=== PATIENT | male | born 1990 | race Caucasian/White ===

== ENCOUNTER → 2016-07-04 | Outpatient (CLI) | payer OTHER ==
--- NOTE | 2016-07-04 13:38 | MR ---
MRI of the Lumbar Spine (Without Contrast) July 04, 2016 Indication: Low back pain. Technique: Sagittal and axial T1 and T2 , and sagittal STIR MR sequences of the lumbar spine without contrast. Axial imaging from T12 through S1. Comparison: MRI lumbar spine dated December 03, 2015. Findings: Loss of normal lordosis and congenitally narrowed spinal canal are similar to 8 months prio r. No compression fracture, bone marrow replacing lesion, or pars defect has developed. The numerous Schmorl's nodes at the T12-L1, L1-L2, and L2-L3 levels are unchanged. The conus medullaris resides at the L1 level. T12-L1: Widely patent central canal and neural foramina. Normal disk. L1-L2: Mild central canal and minimal neural foraminal stenosis is unchanged. Mild facet hypertrophy and minimal posterior disk bulge are unchanged. L2-L3: Severe central canal narrowing due to a subligamentous central disk herniation (protrusion) cam perimposed on a congenitally narrowed canal and facet hypertrophy is unchanged. The thecal sac measur es 5 mm AP. The nerve rootlets are compressed with no significant cerebral spinal fluid around them a t this level. Minimal bilateral neural foraminal stenosis is unchanged. L3-L4: Mild to moderate central canal narrowing due to congenitally narrowed canal and facet hypertro phy is unchanged. Minimal bilateral neural foraminal narrowing is unchanged. L4-L5: Mild central canal and mild neural foraminal stenosis due to minimal posterior disk bulge and facet hypertrophy is unchanged. L5-S1: Mild central canal narrowing due to diffuse broad-based disk bulge and facet hypertrophy is un changed. Impression: 1. Severe central disk stenosis at the L2-L3 level due to a central subligamentous disk herniation (p rotrusion) superimposed on a congenitally narrowed canal is unchanged. 2. No new disk herniation or significant central canal narrowing has developed at any new level. 3. Widely patent neural foramina.
== END ==
LOC: FIMAGING 10:32
PROVIDERS: ATTEND Physician Assistant
DX: M51.26 Other intervertebral disc displacement, lumbar region (principal)

== ENCOUNTER → 2016-08-05 | Outpatient (CLI) | payer OTHER ==
--- NOTE | 2016-08-05 10:44 | MR ---
MRI Pelvis, Without Contrast History: Back pain. Evaluate for sacroiliitis. ICD-10 code: M46.1. Technique: MRI is performed of the pelvis using a 1.5 [employer] MRI system. Sagittal, coronal, and axial imaging was obtained with standard imaging sequences. [id number] was optimized to evaluate the sac rum and sacroiliac joints. Findings: No significant bone marrow edema or evidence for erosion to indicate sacroiliitis. No evide nce for stress fracture of the sacrum. Sacral foramina are widely patent. Visualized musculature is u nremarkable. Impression: No evidence for sacroiliitis.
== END ==
LOC: FIMAGING 07:00
PROVIDERS: ATTEND Physical Medicine & Rehabilitation
DX: M54.9 Dorsalgia, unspecified (principal)

== ENCOUNTER 2016-09-01 07:04 | Day surgery (SDC) | payer OTHER ==
[2016-09-01] MEDS ORDERED: FLUMAZENIL 0.5 MG/5 ML MDV IVP ONE (08:45)
[2016-09-01] MEDS ORDERED: NALOXONE HCL 0.4 MG/ML INJ ONE (08:45)
[2016-09-01] MEDS ORDERED: MIDAZOLAM 2 MG/2 ML VIAL ONE (08:45)
[2016-09-01] MEDS ORDERED: NS 1,000 ML IV SCH (08:45)
[2016-09-01] MEDS ORDERED: ONDANSETRON 4 MG/2 ML VIAL ONE (08:46)
[2016-09-01] MEDS ORDERED: fentaNYL 100 MCG/2 ML INJ ONE (08:46)
[2016-09-01] MEDS ORDERED: DEPO METHYLPREDNISOLONE 80 MG/ML SDV ONE (09:47)
[2016-09-01] MEDS ORDERED: BUPIVACAINE 0.5% 30 ML SDV ONE (09:47)
[2016-09-01] MEDS ORDERED: IOPAMIDOL (ISOVUE-M 300) 15 ML VIAL IV ONE (09:47)
== END 2016-09-01 10:40 | disposition home or self-care (01) ==
LOC: FIMAGING 07:04
PROVIDERS: ATTEND Physical Medicine & Rehabilitation
PROC: 3E0U3BZ Introduction of Anesthetic Agent into Joints, Percutaneous Approach (ICD-10-PCS; principal; 2016-09-01)
PROC: 3E0U33Z Introduction of Anti-inflammatory into Joints, Percutaneous Approach (ICD-10-PCS; principal; 2016-09-01)
DX: M51.16 Intervertebral disc disorders with radiculopathy, lumbar region (principal)
CPT/HCPCS: J1020; J2250; J2310; J2405; J3010; Q9967

== ENCOUNTER 2016-12-09 12:05 | Day surgery (SDC) | payer OTHER ==
[2016-12-01 10:21] LABS: % IMMATURE GRANULYOCYTES 0.5 % (0.0-1.1); ABSOLUTE IMMATURE GRANULOCYTES 0.02 10^3/uL (0.00-0.10); ADD DIFF? NO; ADD MORPH? NO; ADD SCAN? NO; ATYPICAL LYMPHOCYTE FLAG 20 (0-99); FRAGMENT RBC FLAG 0 (0-99); HEMATOCRIT 52.8 % (40.0-51.0); HEMOGLOBIN 18.3 g/dL (13.7-17.5); LEFT SHIFT FLG 0 (0-99); LIPEMIA HEMOLYSIS FLAG 90 (0-99); MEAN CELL HEMOGLOBIN 28.5 pg (27.9-34.1); MEAN CELL HEMOGLOBIN CONCENTR. 34.7 g/dL (32.4-36.7); MEAN CELL VOLUME 82.1 fL (81.5-99.8); MEAN PLATELET VOLUME 10.5 fL (8.7-11.7); PLATELET CLUMPS FLAG 0 (0-99); PLATELET COUNT 208 10^3/uL (150-400); RED BLOOD CELL COUNT 6.43 10^6/uL (4.40-6.38); RED CELL DISTRIBUTION WIDTH 12.1 % (11.5-15.2)
--- NOTE | 2016-12-09 07:02 | PDHPUP ---
History & Physical Update H&P update statement: This history and physical update is based on an assessment of the patient which was completed after admission or registration (within 24 hours), but prior to the surgery/procedure. H&P update: H&P reviewed & patient examined, no change in patient's condition since H&P completed
[~2016-12-09 12:05] MED LIST: BACITRACIN 50,000 UNITS/10 ML SYR IRR ONE; BUPIVACAINE/EPI 0.25% 30 ML SDV ONE; CHLORHEXIDINE GLUC HIBICLENS 118 ML BTL TP ONE; DEPO METHYLPREDNISOLONE 40 MG/ML SDV ONE; THROMBIN (BOVINE) 5,000 UNIT VIAL TP ONE; ceFAZolin 2 GM/DEXTROSE 100 ML IV ONE
[2016-12-09] MEDS ORDERED: LR 1,000 ML IV ONE (12:32)
[2016-12-09] MEDS ORDERED: CEFAZOLIN 2 GM/DEXTROSE/100 ML BAG IV ONE (12:57)
[2016-12-09] MEDS ORDERED: CHLORHEXIDINE GLUC HIBICLENS 118 ML BTL TP ONE (12:57)
[2016-12-09 13:07] LABS: % IMMATURE GRANULYOCYTES 0.2 % (0.0-1.1); ABSOLUTE IMMATURE GRANULOCYTES 0.01 10^3/uL (0.00-0.10); ADD DIFF? NO; ADD MORPH? NO; ADD SCAN? NO; ATYPICAL LYMPHOCYTE FLAG 10 (0-99); FRAGMENT RBC FLAG 0 (0-99); HEMOGLOBIN 18.6 g/dL (13.7-17.5); LEFT SHIFT FLG 0 (0-99); LIPEMIA HEMOLYSIS FLAG 90 (0-99); MEAN CELL HEMOGLOBIN 28.7 pg (27.9-34.1); MEAN CELL HEMOGLOBIN CONCENTR. 35.8 g/dL (32.4-36.7); MEAN CELL VOLUME 80.2 fL (81.5-99.8); MEAN PLATELET VOLUME 10.3 fL (8.7-11.7); PLATELET CLUMPS FLAG 0 (0-99); PLATELET COUNT 203 10^3/uL (150-400); RED BLOOD CELL COUNT 6.48 10^6/uL (4.40-6.38); RED CELL DISTRIBUTION WIDTH 12.4 % (11.5-15.2)
--- NOTE | 2016-12-09 14:27 | PDANEPAE ---
ANE History of Present Illness 26 yo M w spinal stenosis here for L2-3 TLIF ANE Past Medical History - Cardiovascular History Hx Hypertension: No Hx Arrhythmias: No Hx Chest Pain: No Hx Coronary Artery / Peripheral Vascular Disease: No Hx CHF / Valvular Disease: No Hx Palpitations: No - Pulmonary History Hx COPD: No Hx Asthma/Reactive Airway Disease: No Hx Recent Upper Respiratory Infection: No Hx Oxygen in Use at Home: No - Neurologic History Hx Cerebrovascular Accident: No Hx Seizures: No Hx Dementia: No - Endocrine History Hx Diabetes: No - Renal History Hx Renal Disorders: No - Liver History Hx Hepatic Disorders: No - Neurological & Psychiatric Hx Hx Neurological and Psychiatric Disorders: Yes - Cancer History Hx Cancer: No - Congenital Disorder History Hx Congenital Disorders: Yes - GI History Hx Gastrointestinal Disorders: Yes - Chronic Pain History Chronic Pain: Yes (LOWER BACK RADIATING TO BILATERAL LEGS) ANE Review of Systems - Exercise capacity Exercise capacity: >=4 METS METS (RN): 4 METS ANE Patient History - Allergies Allergies/Adverse Reactions: No Known Allergies Allergy (Unverified 12/03/15 15:23) - Home Medications Home medications: home medication list seen and reviewed Home Medications: Vitamin D3 5,000 iunits PO DAILY 08/31/16 [Last Taken 11/24/16] Cyclobenzaprine 2 tab DAILY 11/30/16 [Last Taken 11/26/16] Lyrica 75mg (*) 1 tab BID 11/30/16 [Last Taken 12/08/16] Meloxicam 1 tab DAILY 11/30/16 [Last Taken 11/26/16] Prilosec 20 mg 1 tab DAILY 11/30/16 [Last Taken 12/02/16] - NPO status NPO Since - Liquids (Date): 12/09/16 NPO Since - Liquids (Time): 07:30 NPO Since - Solids (Date): 12/08/16 NPO Since - Solids (Time): 23:55 - Anes Hx Anes Hx: no prior problems - Smoking Hx Smoking Status: Never smoked - Alcohol Use Alcohol Use: None - Family Anes Hx Family Anes Hx: none ANE Labs/Vital Signs - Labs Result Diagrams: 12/09/16 12:53 - Vital Signs Blood Pressure: 140/91 Heart Rate: 96 Respiratory Rate: 16 Height: 175.26 cm Weight: 61.235 kg ANE Physical Exam - Airway Neck exam: FROM Mallampati Score: Class 2 Mouth exam: normal dental/mouth exam - Pulmonary Pulmonary: no respiratory distress, clear to auscultation - Cardiovascular Cardiovascular: regular rate and rhythym, no murmur, rub, or gallop - ASA Status ASA Status: I ANE Anesthesia Plan Anesthesia Plan: general endotracheal anesthesia
[2016-12-09] MEDS ORDERED: PROPOFOL 200 MG/20 ML VIAL ONE (14:31)
[2016-12-09] MEDS ORDERED: PROPOFOL/EMULSION 500 MG/50 ML BOTTLE IV ONE (14:31)
[2016-12-09] MEDS ORDERED: REMIFENTANIL HCL 1 MG VIAL ONE (14:31)
[2016-12-09] MEDS ORDERED: fentaNYL 100 MCG/2 ML INJ ONE ×2 (14:31→17:06)
[2016-12-09] MEDS ORDERED: ROCURONIUM 50 MG/5 ML VIAL ONE (14:33)
[2016-12-09] MEDS ORDERED: LIDOCAINE 2% 100 MG/5 ML SYR ONE (14:33)
[2016-12-09] MEDS ORDERED: MIDAZOLAM 2 MG/2 ML VIAL IVP ONE (14:46)
[2016-12-09] MEDS ORDERED: DEXAMETHASONE 4 MG/ML VIAL ONE (16:02)
[2016-12-09] MEDS ORDERED: ONDANSETRON 4 MG/2 ML VIAL ONE (16:02)
[2016-12-09] MEDS ORDERED: PHENYLEPHRINE HCL 100 MCG/ML SYR ONE ×2 (16:17)
[2016-12-09] MEDS ORDERED: OXYCODONE/APAP 5/325 TAB PO PRN (16:43)
[2016-12-09] MEDS ORDERED: ONDANSETRON 4 MG/2 ML VIAL IVP PRN (16:43)
[2016-12-09] MEDS ORDERED: fentaNYL 100 MCG/2 ML INJ IVP PRN (16:43)
[2016-12-09] MEDS ORDERED: PROMETHAZINE HCL 25 MG/ML INJ IVP PRN (16:43)
[2016-12-09] MEDS ORDERED: NALOXONE HCL 0.4 MG/ML INJ IVP PRN (16:43)
[2016-12-09] MEDS ORDERED: HYDROmorphONE/DILAUDID 1 MG/ML SYR IVP PRN (16:43)
[2016-12-09] MEDS ORDERED: ACETAMINOPHEN 500 MG TAB PO PRN (16:43)
[2016-12-09] MEDS ORDERED: SUGAMMADEX SODIUM 200 MG/2 ML VIAL IVP ONE (17:01)
--- NOTE | 2016-12-09 17:13 | POSTOPPROG ---
Post Op Note Date of Operation: 12/09/16 Surgeon: Estela Chaney Benefits Assistant: Natty Naylor PA-C Anesthesiologist: Cody Conner MD Anesthesia: GET(General Endotracheal) Pre-op Diagnosis: L 2/3 stenosis Post-op Diagnosis: s/p IDRIS and laminectomy at L2/3 Procedure: IDRIS and L 2/3 laminectomy Inf/Abcess present in the surg proc area at time of surgery?: No Depth: Deep Incisional (Fascial) EBL: Minimal Total fluids administered: see anesthesia note Complications: None
--- NOTE | 2016-12-09 17:22 | SOAPPROG ---
SOAP Progress Note Assessment/Plan: Post op Visit S: Awake and alert. Pt with expected lower back pain O: AFVSS/PERRLA/EOMI no droop CN 2-12 grossly intact +lt touch 5/5 BUE/BLE = CDI A/P: 26 yo male that is s/p L2/3 laminectomy and IDRIS -orders in -pt has rx for [place] already as well as Robaxin -call with any questions or concerns -pt seen by Dr Chaney as well 12/09/16 17:19 Objective: Vital Signs Temp Pulse Resp BP Pulse Ox 36.5 C 96 16 140/91 H 11/30/16 12:06 12/09/16 14:27 12/09/16 14:27 12/09/16 14:27 Laboratory Results 12/09/16 12:53 ICD10 Worksheet Patient Problems: Problems Problem Status Onset Lumbar radicular pain Acute Lumbar stenosis Acute - ICD10 Problem Qualifiers (1) Lumbar stenosis (2) Lumbar radicular pain
--- NOTE | 2016-12-09 17:42 | POSTANESTH ---
Post Anesthetic Evaluation Cardiovascular Status: Normal, Stable, Similar to Pre-Op Cond Respiratory Status: Normal, Stable, Similar to Pre-op Cond. Level of Consciousness/Mental Status: Can Participate in Eval, Alert and Oriented Pain Control: Adequate, Prn Tx Ordered Nausea/Vomiting Control: Adequate, Prn Tx Ordered Complications Possibly Related to Anesthesia: None Noted
[2016-12-09 18:23] VITALS: RESP 14; TEMP 97.9
[2016-12-09] MEDS ORDERED: OXYCODONE/APAP 5/325 TAB ONE (19:05)
[2016-12-09 19:53] VITALS: BP 138/95; PULSE 98; O2SAT 98
--- NOTE | 2016-12-10 04:21 | GOP ---
[f rep st] OPERATIVE REPORT DATE OF OPERATION: 12/09/2016 SURGEON: Bernabe Chaney MD MERCERIZER MACHINE OPERATOR: Umberto Naylor PA-C. PREOPERATIVE DIAGNOSIS: Lumbar stenosis L2-3, neurogenic claudication, congenital narrowing of the spinal canal, probable central disk protrusion at L2-3. POSTOPERATIVE DIAGNOSIS: Lumbar stenosis L2-3, neurogenic claudication, congenital narrowing of the spinal canal, probable central disk protrusion at L2-3, confirmed disk protrusion at L2-3. PROCEDURE PERFORMED: Bilateral hemilaminotomy at L2-3 with central and bilateral decompressions ([id number] [phone]), microscope, fluoroscopy. FINDINGS: ESTIMATED BLOOD LOSS: 10 cc. INDICATIONS: The patient is a 26-year-old who has for many months had severe pain radiating down alycia th legs in a symmetric fashion. MRI demonstrated a central disk protrusion at L2-3 that was not jacinta y large, but there was severe clumping of the nerve roots at L2-3 and stenosis at that level. His s ymptoms were bilateral and indeed they fit the pattern of neurogenic claudication. He failed extens lucille attempts at conservative management. I suggested a single-level decompression with bilateral de compressions at L2-3 and I would inspect the L2-3 disk. The risk of CSF leak, nerve injury, continu ed symptoms, and possible need for additional spine surgery was discussed. He understood these risk s and wanted to proceed. DESCRIPTION OF PROCEDURE: Patient was taken to the operating room, placed in supine position. Gene ral anesthesia was begun. He was flipped prone onto the Beny frame. Care was taken to pad all po ints of contact. His back was sterilely prepped and draped by the surgeon. Localizing x-ray was alfredo rich. We made a midline 15 mm incision above the L2-3 interspace. The subcutaneous tissue was disse cted using Bovie cautery down to the fascia and a subperiosteal dissection was made down the L3 lami na. Self-retaining retractors were placed. There was some slight hypermobility of the L2-3 lamina. We then performed a midline laminotomy and drilled the central portion of L2-3 lamina away. We pr eserved a huge amount of the rostral L2 lamina and we also carefully preserve the L2-3 facet joints bilaterally. We tried to make as narrow laminotomy as possible. This was all done under the operat ing microscope. We drilled and then used 2 mm Kerr[place] and continued working our way laterally and then undercut the L2-3 facet joint. There was a little bit of ligamentum flavum hypertrophy contrib uting to the stenosis and we decompressed from the mid L3 pedicle up to the inferior L2 pedicle. We were undercutting the L2-3 facet joints. We were careful not to drill the joint itself and we work ed at an angle undercut the joint to preserve SAP and IAP of L2-3 respectively. We were able to swe ep the thecal sac medially and look at the L2-3 disk and indeed the disk itself demonstrated prolaps e and it was flimsy and completely soft. We took a #15 blade and made an incision in the lateral po rtion of the L2-3 disk and cut through an extremely thin tissue that was thinner even the normal dur a. This is the outer layer of the anulus, but it was not normal anulus. As we cut through this dis k, it began to squirt out through this and we forced more disk fragments out through this. As we we re pushing on this outer anulus, we did discover centrally using a ball-tip probe, a large central d efect in the disk itself. This is an area that is more medial to where I made the small annulotomy. We then began working through this and removing the loose pieces of L2-3 disk. Much of the disk i tself was healthy. We removed all the subannular protrusions that were sitting in the spinal canal. We then irrigated the disk space with antibiotic saline solution. We shot a final x-ray confirmin g the location of the surgery and we then closed the incision in multiple layers using Vicryl suture s. Running PDS was placed in the skin itself. The patient was reversed from anesthesia, extubated, and transferred to recovery room in stable condition. SECONDARY MERCERIZER MACHINE OPERATOR: Xochitl Dozier NP. COMPLICATIONS: None. /[id number]/MODL
== END 2016-12-09 19:48 | disposition home or self-care (01) ==
LOC: FSGY 12:05
PROVIDERS: ATTEND Neurological Surgery
DX: M51.16 Intervertebral disc disorders with radiculopathy, lumbar region (principal); M48.06 Spinal stenosis, lumbar region
CPT/HCPCS: J0690; J1030; J1100; J2001; J2250; J2370; J2405; J2704; J3010